=== PATIENT | female | born 1945 | race Caucasian/White ===

== ENCOUNTER → 2019-10-06 13:51 | Outpatient (CLI) | payer MEDICARE, SELFPAY ==
[2019-10-06 14:20] LABS: Basophils # 0.1 K/mm3 (0-0.2); Basophils % 0.8 % (0.1-2.0); Eosinophils # 0.4 K/mm3 (0.0-0.4); Eosinophils % 4.3 % (0.1-12.0); Hematocrit 43.5 % (37.0-47.0); Hemoglobin 13.9 g/dL (12.2-16.2); Lymphocytes # 2.4 K/mm3 (0.7-4.5); Lymphocytes % 23.3 % (10-50); Mean Corpuscular Hemoglobin 29.5 pg (27.0-31.2); Mean Corpuscular Volume 92.1 fl (81-99); Mean Platelet Volume 8.8 fl (7.4-10.4); Monocytes # 0.5 K/mm3 (0.1-1.0); Monocytes % 4.8 % (1.7-9.3); Neutrophils # 6.9 K/mm3 (1.8-7.8); Neutrophils % 66.9 % (37.0-80.0); Platelet Count 334 K/mm3 (142-424); Red Blood Count 4.72 M/mm3 (4.20-5.40); Red Cell Distribution Width 12.9 % (11.5-17.5); White Blood Count 10.3 K/mm3 (4.8-10.8)
[2019-10-06 15:17] LABS: Alanine Aminotransferase 8 U/L (12-78); Albumin Level 3.9 gm/dL (3.4-5.0); Albumin/Globulin Ratio 1.3 (1.1-1.8); Alkaline Phosphatase 77 U/L (46-116); Anion Gap 13.4 mEq/L (5-15); Aspartate Amino Transferase 11 U/L (15-37); Bilirubin,Total 0.6 mg/dL (0.2-1.0); Blood Urea Nitrogen 19 mg/dL (7-18); C-Reactive Protein 0.6 mg/dL (0.0-0.9); Calcium 9.2 mg/dL (8.5-10.1); Carbon Dioxide 30 mmol/L (21.0-32.0); Chloride 101 mmol/L (98-107); Chol/HDL Ratio 4.4 (1-3.5); Cholesterol 275 mg/dL (140-200); Creatinine,Serum 1.12 mg/dL (0.55-1.02); Estimated Glomerular Filt Rate 48 ml/min (>60); GFR (African American) 58 ML/MIN (>60); Globulin 2.9 gm/dl (1.3-3.2); Glucose 78 mg/dL (74-106); HDL Cholesterol 62 mg/dL (29-89); LDL Cholesterol 161 mg/dL (0-130); Potassium 4.4 mmoL/L (3.5-5.1); Sodium 140 mmol/L (136-145); T4 (Thyroxine) 9.7 ug/dl (4.7-13.3); Total Protein,Serum 6.8 gm/dL (6.4-8.2); Triglycerides 259 mg/dL (30-200); Uric Acid 5.9 mg/dL (2.6-7.2); VLDL Cholesterol 52 mg/dL (0-40)
[2019-10-07 13:21] LABS: RA Latex Turbid. <10.0 IU/mL (0.0-13.9)
[2019-10-07 14:10] LABS: Anti-Centromere B Antibodies <0.2 AI (0.0-0.9); Anti-Jo-1 <0.2 AI (0.0-0.9); Anti-Smith Antibody <0.2 AI (0.0-0.9); Antichromatin Antibodies <0.2 AI (0.0-0.9); Antiscleroderma-70 Antibodies <0.2 AI (0.0-0.9); RNP Antibodies <0.2 AI (0.0-0.9); Sjogren's Anti-SS-A <0.2 AI (0.0-0.9); Sjogren's Anti-SS-B <0.2 AI (0.0-0.9)
[2019-10-08 06:48] LABS: Anti-DNA (DS) Ab Qn <1 IU/mL (0-9)
== END ==
PROVIDERS: Visit Provider Nurse Practitioner Family
DX: R20.0 Anesthesia of skin (principal); I10 Essential (primary) hypertension; E55.9 Vitamin D deficiency, unspecified
CPT/HCPCS: 80053; 80061; 82652; 84436; 84443; 84550; 85025; 86140; 86225; 86235; 86431

== ENCOUNTER → 2020-01-18 10:18 | Outpatient (CLI) | payer MEDICARE, SELFPAY ==
--- NOTE | 2020-01-18 10:22 | US_ITS ---
APPROVED REPORT Exam Type: Ankle to Brachial Index Compensation Coordinator: RT Barbara(R) Indications Claudication: Bilaterally Rest Pain: Bilaterally Current Smoker Risk Factors Current Smoker Pressures/Indices Right Indices Left Indices Brachial 126.00 mmHg Brachial 130.00 mmHg Low Thigh 70.00 mmHg 0.54 Low Thigh 102.00 mmHg 0.78 Calf 66.00 mmHg 0.51 Calf 95.00 mmHg 0.73 Ankle(PT) 59.00 mmHg 0.45 Ankle(PT) 84.00 mmHg 0.65 Ankle(DP) 75.00 mmHg 0.58 Ankle(DP) 116.00 mmHg 0.89 Digit 34.00 mmHg 0.26 Digit 40.00 mmHg 0.31 Findings RT SCOOBY=0.5 LT SCOOBY=0.7 RT TBI=0.3 LT TBI=0.3 Diminished pulses bilaterally with right worse than left Abnormal waveforms distally bilaterally with right worse than left Conclusion RT SCOOBY=0.5 LT SCOOBY=0.7 RT TBI=0.3 LT TBI=0.3 Diminished pulses bilaterally with right worse than left Abnormal waveforms distally bilaterally with right worse than left MODERATE ARTERIAL DISEASE BILATERALLY RIGHT WORSE THAN LEFT SUSPECT STENOSIS OF ILIAC OR PROXIMAL FEMORAL ARTERY ON BOTH SIDES WHICH MAY BE CONFIRMED WITH CTA Electronically signed by : Krishna Stoner MD 01/19/2020 17:55:57
== END ==
PROVIDERS: PCP Nurse Practitioner Family; Visit Provider Nurse Practitioner Family
DX: R09.89 Other specified symptoms and signs involving the circulatory and respiratory systems (principal)
CPT/HCPCS: 93923

== ENCOUNTER → 2020-03-27 15:51 | Outpatient (CLI) | payer MEDICARE, SELFPAY ==
--- NOTE | 2020-03-27 15:56 | XR_ITS ---
PROCEDURE: XR FOOT WT BEARING RT 3V CLINICAL INDICATION: pain Posttraumatic pain COMPARISON: No exams were available for comparison FINDINGS: No fracture or dislocation. No lytic or blastic change. There is normal mineralization. Mild hallux valgus with osteoarthritis and bunion formation at the 1st MTP joint. Borderline pes planus. Mild osteoarthritic change talonavicular joint. Other findings:None. IMPRESSION: Mild hallux valgus with osteoarthritis and bunion formation at the 1st MTP joint. Borderline pes planus. Mild osteoarthritic change talonavicular joint. Dictated by: Krishna Stoner MD 03/27/2020 17:29 Electronically signed by Krishna Stoner MD in [place] 03/27/2020 17:29
--- NOTE | 2020-03-27 15:56 | XR_ITS ---
PROCEDURE: XR FOOT WT BEARING LT 3V CLINICAL INDICATION: PAIN COMPARISON: No exams were available for comparison FINDINGS: No fracture or dislocation. No lytic or blastic change. There is normal mineralization. Mild hallux valgus with osteoarthritis and bunion formation at the 1st metatarsophalangeal junction. On the oblique view there is some increased density along the proximal and lateral aspect of the proximal phalanx the 1st toe. This could be related to artifact from the surgery or soft tissue calcification. No other significant anomalies are evident. Bandage artifact is present medially at the 1st metatarsophalangeal junction. Other findings:None. IMPRESSION: Mild hallux valgus with osteoarthritis and bunion formation at the 1st MTP joint. Increased density noted along the proximal and lateral aspect of the proximal phalanx of the great toe which could be due to artifact or overlying soft tissue calcification Dictated by: Krishna Stoner MD 03/27/2020 17:36 Electronically signed by Krishna Stoner MD in [place] 03/27/2020 17:36
[2020-03-27 16:53] LABS: Basophils # 0.1 K/mm3 (0-0.2); Basophils % 0.6 % (0.1-2.0); Eosinophils # 0.5 K/mm3 (0.0-0.4); Eosinophils % 4.9 % (0.1-12.0); Hematocrit 40.2 % (37.0-47.0); Hemoglobin 13.6 g/dL (12.2-16.2); Lymphocytes # 2.8 K/mm3 (0.7-4.5); Lymphocytes % 27.1 % (10-50); Mean Corpuscular HGB Conc 33.8 g/dL (31.8-35.4); Mean Corpuscular Volume 88.7 fl (81-99); Mean Platelet Volume 7.7 fl (7.4-10.4); Monocytes # 0.4 K/mm3 (0.1-1.0); Monocytes % 4.1 % (1.7-9.3); Neutrophils # 6.6 K/mm3 (1.8-7.8); Neutrophils % 63.3 % (37.0-80.0); Platelet Count 317 K/mm3 (142-424); Red Blood Count 4.53 M/mm3 (4.20-5.40); Red Cell Distribution Width 13.3 % (11.5-17.5); White Blood Count 10.4 K/mm3 (4.8-10.8)
[2020-03-27 17:10] LABS: Chloride 103 mmol/L (98-107); Potassium 4.5 mmoL/L (3.5-5.1); Sodium 137 mmol/L (136-145)
[2020-03-27 17:12] LABS: Alanine Aminotransferase 12 U/L (12-78); Aspartate Amino Transferase 23 U/L (14-36); Blood Urea Nitrogen 27 mg/dl (7-17); Estimated Glomerular Filt Rate 44 ml/min (>60); GFR (African American) 53 ML/MIN (>60)
[2020-03-27 17:13] LABS: Albumin Level 4.3 g/dl (3.5-5.0); Alkaline Phosphatase 60 U/L (38-126); Anion Gap 12.5 mEq/L (5-15); Bilirubin,Total 0.4 mg/dl (0.2-1.3); Calcium 9.8 mg/dl (8.4-10.2); Carbon Dioxide 26 mmol/L (22.0-30.0); Globulin 2.2 g/dL (1.3-3.2); Glucose 83 mg/dl (74-100); Total Protein,Serum 6.5 g/dl (6.3-8.2)
[2020-03-27 17:19] LABS: C-Reactive Protein 13.2 mg/L (0-4)
[2020-03-27 17:31] LABS: Erythrocyte Sedimentation Rate 16 mm/hr (0-30)
== END ==
PROVIDERS: PCP Physician Assistant; Visit Provider Podiatrist
DX: L84 Corns and callosities (principal); L08.9 Local infection of the skin and subcutaneous tissue, unspecified
CPT/HCPCS: 36415; 73630; 80053; 85025; 85651; 86140; 87070; 87077; 87186; 87205

== ENCOUNTER → 2020-04-13 09:47 | Outpatient (CLI) | payer MEDICARE, SELFPAY ==
--- NOTE | 2020-04-13 09:59 | MR_ITS ---
PROCEDURE: MR FOOT RT WO/W CON CLINICAL INDICATION: cellulitis, infection of toe Right 3rd toe infection with pain, cellulitis right 3rd toe, chronic draining wound with severe peripheral artery disease COMPARISON: XR FOOT WT BEARING RT 3V from 03/27/2020 TECHNIQUE: Routine multiplanar multi echo sequences are performed without and with gadolinium enhancement. FINDINGS: There is slight increased STIR signal involving the tuft of the distal phalanx of the 3rd toe. This is evident on both axial sagittal and coronal images. However, there does not appear to be any significant contrast enhancement at this region. No abscess or fistulous track evident. There is thickening the overlying toenail at this region. There is mild hallux valgus with osteoarthritis of the 1st MTP joint and some minimal subarticular cystic change at the distal aspect of the 1st metatarsal with bunion formation. Small ankle joint effusion is noted. No abscesses or other significant anomalies. IMPRESSION: 1. Mild bone marrow edema of the tuft of the distal phalanx of the 3rd toe without significant enhancement. The edema could be reactive in nature from up from overlying soft tissue infection. Cannot exclude the possibility of osteomyelitis however, the absence of contrast enhancement argues against that finding. 2. Mild hallux valgus with osteoarthritis and bunion formation at the 1st MTP joint Dictated by: Krishna Stoner MD 04/19/2020 09:03 Electronically signed by Krishna Stoner MD in [place] 04/19/2020 09:03
[2020-04-13 10:03] LABS: Basophils # 0.1 K/mm3 (0-0.2); Basophils % 0.8 % (0.1-2.0); Eosinophils # 0.6 K/mm3 (0.0-0.4); Eosinophils % 5.1 % (0.1-12.0); Hematocrit 44.2 % (37.0-47.0); Hemoglobin 13.7 g/dL (12.2-16.2); Lymphocytes # 2.3 K/mm3 (0.7-4.5); Lymphocytes % 19.9 % (10-50); Mean Corpuscular Volume 93.6 fl (81-99); Mean Platelet Volume 7.6 fl (7.4-10.4); Monocytes # 0.5 K/mm3 (0.1-1.0); Monocytes % 4.8 % (1.7-9.3); Neutrophils # 7.9 K/mm3 (1.8-7.8); Neutrophils % 69.3 % (37.0-80.0); Platelet Count 389 K/mm3 (142-424); Red Blood Count 4.72 M/mm3 (4.20-5.40); Red Cell Distribution Width 13.6 % (11.5-17.5); White Blood Count 11.4 K/mm3 (4.8-10.8)
[2020-04-13 10:11] LABS: Alanine Aminotransferase 10 U/L (12-78); Albumin Level 4.6 g/dl (3.5-5.0); Albumin/Globulin Ratio 1.6 (1.1-1.8); Alkaline Phosphatase 69 U/L (38-126); Anion Gap 9.6 mEq/L (5-15); Aspartate Amino Transferase 24 U/L (14-36); Bilirubin,Total 0.6 mg/dl (0.2-1.3); Blood Urea Nitrogen 25 mg/dl (7-17); Calcium 9.8 mg/dl (8.4-10.2); Carbon Dioxide 29 mmol/L (22.0-30.0); Chloride 103 mmol/L (98-107); Estimated Glomerular Filt Rate 40 ml/min (>60); GFR (African American) 49 ML/MIN (>60); Globulin 2.8 g/dL (1.3-3.2); Glucose 104 mg/dl (74-100); Potassium 4.6 mmoL/L (3.5-5.1); Sodium 137 mmol/L (136-145); Total Protein,Serum 7.4 g/dl (6.3-8.2)
[2020-04-13 10:17] LABS: C-Reactive Protein 17.9 mg/L (0-4)
[2020-04-13 10:36] LABS: Erythrocyte Sedimentation Rate 24 mm/hr (0-30)
== END ==
PROVIDERS: PCP Physician Assistant; Visit Provider Podiatrist
DX: L08.9 Local infection of the skin and subcutaneous tissue, unspecified (principal); L03.031 Cellulitis of right toe
CPT/HCPCS: 36415; 73720; 80053; 85025; 85651; 86140; A9576

== ENCOUNTER 2020-04-28 08:50 | Day surgery (SDC) | payer MEDICARE, SELFPAY ==
[2020-04-28] VITALS (30 sets, daily range): BP systolic 117–156; BP diastolic 55–119; PULSE 65–86; RESP 15–20; TEMP 36.4–36.9; O2SAT 91–100; BMI 24.6
[2020-04-28 09:41] LABS: Basophils # 0.1 K/mm3 (0-0.2); Basophils % 0.4 % (0.1-2.0); Eosinophils # 0.7 K/mm3 (0.0-0.4); Eosinophils % 5.1 % (0.1-12.0); Hematocrit 41.4 % (37.0-47.0); Hemoglobin 14.1 g/dL (12.2-16.2); Lymphocytes # 2.4 K/mm3 (0.7-4.5); Lymphocytes % 16.6 % (10-50); Mean Corpuscular HGB Conc 34.1 g/dL (31.8-35.4); Mean Corpuscular Hemoglobin 30.2 pg (27.0-31.2); Mean Corpuscular Volume 88.6 fl (81-99); Mean Platelet Volume 8.7 fl (7.4-10.4); Monocytes # 0.6 K/mm3 (0.1-1.0); Monocytes % 4.4 % (1.7-9.3); Neutrophils # 10.6 K/mm3 (1.8-7.8); Neutrophils % 73.5 % (37.0-80.0); Platelet Count 300 K/mm3 (142-424); Red Blood Count 4.67 M/mm3 (4.20-5.40); Red Cell Distribution Width 13.3 % (11.5-17.5); White Blood Count 14.5 K/mm3 (4.8-10.8)
[2020-04-28 09:43] LABS: Chloride 104 mmol/L (98-107); Potassium 3.9 mmoL/L (3.5-5.1); Sodium 137 mmol/L (136-145)
[2020-04-28 09:46] LABS: Anion Gap 8.9 mEq/L (5-15); Blood Urea Nitrogen 25 mg/dl (7-17); Calcium 9.5 mg/dl (8.4-10.2); Carbon Dioxide 28 mmol/L (22.0-30.0); Creatinine Clearance Estimated 45 mL/min (50-200); Estimated Glomerular Filt Rate 44 ml/min (>60); GFR (African American) 53 ML/MIN (>60); Glucose 92 mg/dl (74-100)
--- NOTE | 2020-04-28 11:00 | IR_ITS ---
APPROVED REPORT Patient Location: Outpatient Head Librarian: JAQUELINE Baeza RT (R) PROCEDURES Catheter placement in the abdominal aorta Abdominal aortography Repositioning of the catheter in the abdominal aorta Bilateral iliofemoral runoff Bare-metal stent deployment to the right common iliac artery extending into the right external iliac artery Right retrograde femoral angiography INDICATION Peripheral artery disease, Kohler class III claudication, Abnormal SCOOBY Informed consent was obtained prior to the procedure. COMPLICATIONS NONE Estimated Blood Loss: LESS THAN 10 MLS TECHNIQUE 1% lidocaine used to anesthetize the right groin the right femoral artery was accessed via the Salinger technique and a 5 Qatari sheath was placed in the right femoral artery. A pigtail catheter was advanced in the abdominal aorta and abdominal aortography was performed. Catheter was repositioned and bilateral iliofemoral angiography with runoff to the bilateral feet were performed. Following this therapeutic heparin was administered and the 5 Qatari sheath was exchanged for a 6 Qatari sheath. A long wire was placed in the abdominal aorta where an 8 mm x 100 mm self-expanding stent was deployed. An 8 mm x 40 mm balloon was then deployed at 7 quintin in the proximal portion of the stent 4 quintin in the midportion and 2 quintin in the distal portion of the stent. Post retrograde femoral angiography demonstrated wide patency of the stent with excellent antegrade flow and improved blood pressure ANGIOGRAPHIC RESULTS Right renal artery singular normal. The left renal artery is singular and has an ostial 40% stenosis There is diffuse extensive calcified 30% atheromatous plaque throughout the infrarenal abdominal aorta The right common iliac artery is has an eccentric ruptured complex plaque creating a 50% stenosis. The right internal iliac artery is patent but moderately atheromatous. The external iliac artery has a proximal 50% an eccentric 70% and a concentric 80% stenosis. The right common femoral artery has 40 and 50% stenoses The right profunda femoris artery is patent. The right superficial femoral artery is occluded in its proximal through mid segment. The popliteal artery re-cannulates at the infrageniculate level through collaterals from the profunda femoris. There is a 90% stenosis in the proximal portion of the anterior tibialis artery followed by an 80% stenosis however there is good single-vessel flow into the right foot. Very distally the anterior tibialis artery crosses over and then provides flow through the posterior tibialis artery. The dorsalis pedis artery is not angiographically identified. The peroneal artery and posterior tibialis artery are proximally occluded. The posterior tibialis artery only reconstitutes in the foot level The left common iliac artery has a mid vessel 40% stenosis. The left internal iliac artery is patent but moderately diffusely stenosed. The left external iliac artery has focal tandem 80% stenoses. The left common femoral artery has 40% stenosis the left profunda femoris artery is widely patent. The left superficial femoral artery is patent throughout its entire course but moderate to severely diffusely diseased. In Shamar's canal there is an 80% stenosis. The popliteal artery is also atheromatous with diffuse 50% stenoses. The left anterior tibialis artery is patent with small caliber vessel until the proximal portion of the ankle. It is then occluded and then crosses over into the peroneal artery right at the ankle level and then scantly supplies the left foot IMPRESSION Moderate left renal artery stenosis Moderate stenosis in the right common iliac
[2020-04-28 12:47] LABS: CATHL Activated Clotting Time 324 SEC (74-125)
--- NOTE | 2020-04-28 14:30 | HMH.PHACLD ---
Jackie Morris has received discharge medication counseling on the following medications: PATIENT WITH PERIPHERAL STENTS. PATIENT CURRENT TAKING LISINOPRIL HCTZ 10/12.5 MG DAILY AND ASPIRIN 81 MG DAILY. MD STARTING ATORVASTATIN 40 MG HS AND PLAVIX 75 MG DAILY.
--- NOTE | 2020-04-28 19:10 | PC.NURSE ---
report given to estiven
--- NOTE | 2020-04-28 19:48 | PC.NURSE ---
CHARTED ON THE WRONG PATIENT
--- NOTE | 2020-04-28 19:49 | PC.NURSE ---
CHARTED ON WRONG PATIENT
[2020-09-05 09:26] LABS: CATHL Activated Clotting Time 148 SEC (74-125)
== END 2020-04-28 19:00 | disposition home or self-care (01) ==
LOC: CATHLAB 08:51 → 2ND 14:01
PROVIDERS: PCP Physician Assistant; Visit Provider Internal Medicine
DX: I70.223 Atherosclerosis of native arteries of extremities with rest pain, bilateral legs (principal); I10 Essential (primary) hypertension; M79.604 Pain in right leg; M79.605 Pain in left leg; R42 Dizziness and giddiness; R94.31 Abnormal electrocardiogram [ECG] [EKG]; Z72.0 Tobacco use; Z79.82 Long term (current) use of aspirin; Z79.899 Other long term (current) drug therapy; I77.1 Stricture of artery
CPT/HCPCS: 37221; 80048; 85025; 85347; 99152; 99153; C1725; C1769; C1876; C1894; J1644; J2720; Q9966

== ENCOUNTER 2020-05-17 07:54 | Day surgery (SDC) | payer MEDICARE, SELFPAY ==
[2020-05-17] VITALS (50 sets, daily range): BP systolic 98–150; BP diastolic 44–82; PULSE 52–90; RESP 16–18; TEMP 36.2–36.8; O2SAT 93–100; BMI 24.3
--- NOTE | 2020-05-17 07:56 | CA_ITS ---
APPROVED REPORT Field Ironworker: Alissa Flores RVT Laterality: Bilateral Study Quality: Good Indications: left carotid bruit, Dizziness and Vertigo Risk Factors Hypertension: PAD Smoking Doppler Spectral Velocity Analysis ECA (R) 76.70/9.50 cm/s ECA (L) 77.70/9.40 cm/s dICA (R) 76.20/20.50 cm/s dICA (L) 87.10/34.50 cm/s Jada (R) 86.00/25.30 cm/s Jada (L) 101.60/32.80 cm/s pICA (R) 96.00/39.50 cm/s pICA (L) 12.80/48.70 cm/s dCCA (R) 93.70/25.50 cm/s dCCA (L) 76.60/26.70 cm/s pCCA (R) 78.20/21.80 cm/s pCCA (L) 79.60/28.60 cm/s Vert (R) 38.10/15.90 cm/s Vert (L) 58.30/28.10 cm/s ICA/CCA 1.02 ICA/CCA 1.62 Findings Study suggests less than 20% stenosis of the right internal cartoid artery. Study suggests 20-49% stenosis (lower end of scale) of the left internal cartoid artery. Antegrade flow seen bilateral vertebral arteries. Conclusion Study suggests less than 20% stenosis of the right internal cartoid artery. Study suggests 20-49% stenosis (lower end of scale) of the left internal cartoid artery. Antegrade flow seen bilateral vertebral arteries. Electronically signed by : Krishna Stoner MD 05/18/2020 14:53:31
--- NOTE | 2020-05-17 07:56 | CA_ITS ---
APPROVED REPORT EXAM: Comprehensive 2D, Doppler, and color-flow Echocardiogram Size Worker: Alissa Flores RVT Ht: 5 ft 5 in Wt: 146lbs BSA: 1.73 BP: 122/70 mmHg Indications: SOA,PAD,HTN,SMOKER 2D Dimensions LVOT 1.80 cm (M/F) 1.5-2.5 M-Mode Dimensions RVDd 2.58 cm (0.9-2.6) LVDd 4.66 cm (3.5-5.7) LVDs 3.32 cm (3.5-5.7) IVSd 0.64 cm (0.6-1.1) PWd 0.91 cm (0.6-1.1) EF (Teich) 55.30% FS 28.80% EDV (Teich) 100.30 mL ESV (Teich) 44.80 mL LV Diastology E/A Ratio 0.71 Mitral Valve MV A Velocity 76.00 (40-130 cm/s) Left Ventricle Left atrium is mildly enlarged, left ventricle is normal size, mild concentric left ventricular hypertrophy, visually estimated ejection fraction 60 to 65% with no regional wall motion abnormality. Grade 1 diastolic dysfunction seen without tissue Doppler evidence of raise left atrial pressure. Right Ventricle Right atrium and right ventricular normal size and contractility. Aortic Valve Aortic valve is minimally thickened and fibrosed, there is no aortic stenosis aortic insufficiency. Mitral Valve Mitral valve is minimally thickened, there is no mitral stenosis, there is mild mitral regurgitation. Tricuspid Valve Tricuspid valve grossly normal, there is mild tricuspid regurgitation, tricuspid regurgitation jet velocity is inadequate for calculation of the right ventricular systolic pressure. Pulmonic Valve Pulmonic valve is poorly visualized. Great Vessels Aortic root is normal size. Pericardium No significant pericardial effusion noted. Conclusion 1. Mildly enlarged left atrium, normal left ventricular size, mild concentric left ventricular hypertrophy, visually estimated ejection fraction of 60 to 65% with no regional wall motion abnormality, grade 1 diastolic dysfunction seen without tissue Doppler evidence of raise left atrial pressure. 2. Mild mitral and tricuspid regurgitation. 3. No significant pericardial effusion noted. Electronically signed by : Dominick Mann, 05/18/2020 11:12:51
[2020-05-17 09:06] LABS: Basophils # 0.1 K/mm3 (0-0.2); Basophils % 0.8 % (0.1-2.0); Eosinophils # 0.9 K/mm3 (0.0-0.4); Eosinophils % 6.4 % (0.1-12.0); Hematocrit 39.4 % (37.0-47.0); Hemoglobin 13.3 g/dL (12.2-16.2); Lymphocytes # 2.1 K/mm3 (0.7-4.5); Mean Corpuscular HGB Conc 33.7 g/dL (31.8-35.4); Mean Corpuscular Hemoglobin 30.4 pg (27.0-31.2); Mean Corpuscular Volume 90.2 fl (81-99); Mean Platelet Volume 7.4 fl (7.4-10.4); Monocytes # 0.6 K/mm3 (0.1-1.0); Monocytes % 4.4 % (1.7-9.3); Neutrophils # 10.3 K/mm3 (1.8-7.8); Neutrophils % 73.3 % (37.0-80.0); Platelet Count 368 K/mm3 (142-424); Red Blood Count 4.36 M/mm3 (4.20-5.40); Red Cell Distribution Width 13.5 % (11.5-17.5)
[2020-05-17 09:10] LABS: Chloride 106 mmol/L (98-107); Potassium 3.9 mmoL/L (3.5-5.1); Sodium 139 mmol/L (136-145)
[2020-05-17 09:13] LABS: Anion Gap 6.9 mEq/L (5-15); Blood Urea Nitrogen 27 mg/dl (7-17); Calcium 9.4 mg/dl (8.4-10.2); Carbon Dioxide 30 mmol/L (22.0-30.0); Creatinine Clearance Estimated 38 mL/min (50-200); Estimated Glomerular Filt Rate 37 ml/min (>60); GFR (African American) 45 ML/MIN (>60); Glucose 101 mg/dl (74-100)
--- NOTE | 2020-05-17 10:00 | IR_ITS ---
APPROVED REPORT Patient Location: Outpatient PROCEDURES Left femoral arterial access Left retrograde femoral angiogram Bare-metal stent deployment to the left external iliac artery INDICATION Left external iliac artery peripheral artery disease, Vascular claudication Informed consent was obtained prior to the procedure. COMPLICATIONS none Estimated Blood Loss: less than 10 mls TECHNIQUE 1% lidocaine used to anesthetize the left femoral groin. The left femoral artery was accessed via the Seldinger technique. A 6 English sheath was placed in the left femoral artery and retrograde angiography was performed confirming the severe stenosis in the external iliac artery. Therapeutic heparin was administered. A 7 mm x 27 mm bare-metal stent was deployed at 14 quintin reducing the severe stenosis to 0%. At the end of the procedure the patient was transferred to the postop holding in stable condition for postoperative care and sheath removal IMPRESSION Successful stenting of the distal left external iliac artery severe tandem lesions reduced to less than 10% with one bare-metal balloon expandable stent PLAN 1. Continue current therapy Electronically signed by : Randy Latham, 05/17/2020 13:00:23
[2020-05-17 12:58] LABS: CATHL Activated Clotting Time 268 SEC (74-125)
[2020-05-17 13:21] LABS: CATHL Activated Clotting Time 150 SEC (74-125)
[2020-05-17 13:24] LABS: CATHL Activated Clotting Time 205 SEC (74-125)
--- NOTE | 2020-05-17 18:58 | PC.NURSE ---
PATIENT A&O X4, LUNGS CLEAR, PULSES EQUAL, LEFT GROIN DRESSING, CLEAN, DRY AND INTACT. PATIENT REMAINED SUPINE UNTIL 1814. THIS RN GRADUALLY RAISED THE HEAD OF THE BED. PATIENT IS NOW AT A 45 DEGREE ANGLE. PATIENT TOLERATED WELL. NO OTHER CONCERNS AT THIS TIME.
--- NOTE | 2020-05-17 19:08 | PC.NURSE ---
report given to perry
[2020-05-18] VITALS: BP 103/52; PULSE 73; RESP 16; TEMP 36.8; O2SAT 95
--- NOTE | 2020-05-18 02:55 | PC.NURSE ---
A&OX4. PT TOLERATING RA WELL THIS SHIFT. CATH SITE PRESENT TO L FEMORAL AREA, CDI. PT DOING WELL AMBULATING IN ROOM, WITH STANDBY ASSIST. PT HAS BEEN IN BED RESTING WITH EYES CLOSED MAJORITY OF SHIFT. NO C/O THUS FAR. PT STATES SHE IS READY TO GO HOME. VSS WILL CONTINUE TO MONITOR.
[2020-05-18 03:49] VITALS: BP 103/55; PULSE 75; RESP 18; TEMP 36.8; O2SAT 96
[2020-05-18 05:05] VITALS: BMI 25.0
[2020-05-18 08:00] VITALS: BP 129/67; PULSE 77; RESP 18; TEMP 36.6; O2SAT 99
--- NOTE | 2020-05-18 08:22 | PC.NURSE ---
SAIMA JOYCE WITH CARDIOLOGY AT BEDSIDE ORDERS TO DISCHARGE PATIENT. PHARMACY CALLED FOR MEDICATION EDUCATION. PATIENTS DAUGHTER CALLED PER PATIENT FOR TRANSPORT.
--- NOTE | 2020-05-18 08:44 | HMH.PHACLD ---
Jackie Morris has received discharge medication counseling on the following medications: NO NEW MEDICATIONS FOR THIS PATIENT. ALREADY TAKING ASPIRIN, PLAVIX, LIPITOR, AND LISINOPRIL. BETA ROSENDO NOT NECESSARY FOR PERIPHERAL STENT. PATIENT VERBALIZED UNDERSTANDING AND HAD NO QUESTIONS AT THIS TIME. -JAMILAH STONE, PHARMD
--- NOTE | 2020-05-18 09:12 | PC.NURSE ---
NICOLETTE CHRISTIAN FROM [facility] PROVIDED DISCHARGE INSTRUCTIONS TO PATIENT AND PATIENTS DAUGHTER 05/17/2020
== END 2020-05-18 08:37 | disposition home or self-care (01) ==
LOC: RT 07:55 → CATHLAB 08:50 → 2ND 15:05
PROVIDERS: Internal Medicine; PCP Physician Assistant; Visit Provider Urology
DX: Z72.0 Tobacco use (principal); I10 Essential (primary) hypertension; I70.223 Atherosclerosis of native arteries of extremities with rest pain, bilateral legs; M79.605 Pain in left leg; R94.31 Abnormal electrocardiogram [ECG] [EKG]; M79.604 Pain in right leg; I77.1 Stricture of artery; R42 Dizziness and giddiness
CPT/HCPCS: 37221; 80048; 85025; 85347; 93306; 93880; 99152; 99153; C1769; C1876; C1894; J1644; J2720; Q9966

== ENCOUNTER → 2021-03-02 17:03 | Outpatient (CLI) | payer MEDICARE, SELFPAY ==
[2021-03-02 17:48] LABS: Basophils # 0.1 K/mm3 (0-0.2); Basophils % 0.7 % (0.1-2.0); Eosinophils # 0.6 K/mm3 (0.0-0.4); Eosinophils % 5.8 % (0.1-12.0); Hematocrit 37.1 % (37.0-47.0); Hemoglobin 12.2 g/dL (12.2-16.2); Lymphocytes # 2.3 K/mm3 (0.7-4.5); Lymphocytes % 24.4 % (10-50); Mean Corpuscular HGB Conc 32.9 g/dL (31.8-35.4); Mean Corpuscular Volume 87.9 fl (81-99); Monocytes # 0.6 K/mm3 (0.1-1.0); Neutrophils % 63.1 % (37.0-80.0); Platelet Count 296 K/mm3 (142-424); Red Blood Count 4.22 M/mm3 (4.20-5.40); Red Cell Distribution Width 13.9 % (11.5-17.5); White Blood Count 9.5 K/mm3 (4.8-10.8)
[2021-03-02 18:35] LABS: Alanine Aminotransferase 13 U/L (12-78); Albumin Level 4.3 g/dl (3.5-5.0); Alkaline Phosphatase 68 U/L (38-126); Anion Gap 12.6 mEq/L (5-15); Aspartate Amino Transferase 48 U/L (14-36); Bilirubin,Total 0.4 mg/dl (0.2-1.3); Blood Urea Nitrogen 28 mg/dl (7-17); Calcium 9.3 mg/dl (8.4-10.2); Carbon Dioxide 26 mmol/L (22.0-30.0); Chloride 106 mmol/L (98-107); Cholesterol 176 mg/dl (140-200); Estimated Glomerular Filt Rate 32 ml/min (>60); GFR (African American) 38 ML/MIN (>60); Globulin 2.1 g/dL (1.3-3.2); Glucose 101 mg/dl (74-100); Potassium 4.6 mmoL/L (3.5-5.1); Sodium 140 mmol/L (136-145); Total Protein,Serum 6.4 g/dl (6.3-8.2); Triglycerides 237 mg/dl (30-150); VLDL Cholesterol 47 mg/dL (0-40)
[2021-03-02 18:46] LABS: Direct LDL Cholesterol 76.65 mg/dL (100-129)
[2021-03-02 18:54] LABS: T4 (Thyroxine) 8.9 ug/dl (5.53-11.0)
[2021-03-02 19:06] LABS: Thyroid Stimulating Hormone 0.84 uIU/mL (0.465-4.68)
[2021-03-02 19:17] LABS: HDL Cholesterol 59 mg/dl (40-60)
== END ==
PROVIDERS: Visit Provider Nurse Practitioner Family
DX: E55.9 Vitamin D deficiency, unspecified (principal); F17.200 Nicotine dependence, unspecified, uncomplicated; I10 Essential (primary) hypertension; I65.29 Occlusion and stenosis of unspecified carotid artery; I73.9 Peripheral vascular disease, unspecified; L85.1 Acquired keratosis [keratoderma] palmaris et plantaris
CPT/HCPCS: 80053; 80061; 82306; 84436; 84443; 85025

== ENCOUNTER → 2021-03-15 13:49 | Outpatient (CLI) | payer MEDICARE, SELFPAY ==
[2021-03-15 14:51] LABS: Hemoglobin A1C 5.7 % (4.0-6.0)
== END ==
PROVIDERS: Visit Provider Nurse Practitioner Family
DX: R73.09 Other abnormal glucose (principal)
CPT/HCPCS: 83036

== ENCOUNTER → 2021-03-26 13:52 | Outpatient (CLI) | payer MEDICARE, SELFPAY ==
--- NOTE | 2021-03-26 14:13 | CA_ITS ---
APPROVED REPORT Clinical Assistant Professor: Alissa Flores RVT Laterality: Bilateral Study Quality: Good Indications: ACNDIDA Risk Factors Hyperlipidemia Smoking Doppler Spectral Velocity Analysis ECA (R) 101.60/10.70 cm/s ECA (L) 147.60/15.00 cm/s dICA (R) 81.30/33.10 cm/s dICA (L) 99.40/39.60 cm/s Jada (R) 97.30/26.70 cm/s Jada (L) 144.40/52.40 cm/s pICA (R) 140.10/26.70 cm/s pICA (L) 118.70/35.30 cm/s dCCA (R) 92.00/27.80 cm/s dCCA (L) 78.10/21.40 cm/s pCCA (R) 77.00/15.00 cm/s pCCA (L) 77.00/21.40 cm/s Vert (R) 89.80/37.40 cm/s Vert (L) 99.40/38.50 cm/s ICA/CCA Findings Study suggests 20-49% stenosis of the right internal cartoid artery (lower end of scale). Study suggests 20-49% stenosis of the left internal cartoid artery. Antegrade flow seen bilateral vertebral arteries. Conclusion Study suggests 20-49% stenosis of the right internal cartoid artery (lower end of scale). Study suggests 20-49% stenosis of the left internal cartoid artery. Antegrade flow seen bilateral vertebral arteries. Electronically signed by : Krishna Stoner MD 03/26/2021 17:05:49
== END ==
PROVIDERS: PCP Nurse Practitioner Family; Visit Provider Urology
DX: F17.200 Nicotine dependence, unspecified, uncomplicated (principal); I10 Essential (primary) hypertension; I65.23 Occlusion and stenosis of bilateral carotid arteries; I73.9 Peripheral vascular disease, unspecified
CPT/HCPCS: 93880

== ENCOUNTER 2022-05-13 10:53 | Emergency (ER) | payer MEDICARE, SELFPAY ==
[2022-05-13 11:10] VITALS: BP 155/79; PULSE 88; RESP 18; TEMP 36.9; O2SAT 96; BMI 28.1
[2022-05-13 11:22] VITALS: BP 155/79; PULSE 88; RESP 18; TEMP 36.9; O2SAT 96
--- NOTE | 2022-05-13 11:26 | HMH.EDUTC ---
[facility] [place] Clinical Impression: Exposure to COVID-19 virus Disposition: Home, Self-Care Condition on Discharge: Good Instructions: DI for COVID-19 (Suspected or Confirmed ) Additional Instructions: *Monitor Temp, Over the counter Motrin or Tylenol as directed/as needed Tylenol every 4 hours and Motrin every 6 hours (as long as your family doctor has told you that you can take it) for fever or pain. and straight to ER if unable to lower temp less than 101.0 after medication given Follow up IMMEDIATELY for new or worsening symptoms or no Noticeable improvement over the next 48-72 hours. 911 for difficulty breathing or swallowing You were tested for today for COVID19 your test result should be back in the next 24-48 hours, you may check your results on the [facility] My Health Portal Make sure to take your Vitamins Vit. C Vit D and Zinc if you can take them Referrals: Shen Randle APRN [Primary Care Provider] - As needed Time of Disposition: 11:27 Medical Decision Making - Srikanth Inquiry Pt receiving controlled substance: No Srikanth was queried for this patient: No Vital Signs: 05/13/22 11:10 05/13/22 11:22 Temperature 98.4 F 98.4 F Temperature Source Oral Pulse Rate 88 Pulse Rate [Right Brachial] 88 Respiratory Rate 18 18 Blood Pressure 155/79 H Blood Pressure [Right Arm] 155/79 H Blood Pressure Mean [Right Arm] 104 Blood Pressure Source [Right Arm] Automatic Cuff Blood Pressure Position [Right Arm] Sitting 02 Sat by Pulse Oximetry 96 Oxygen Delivery Method Room Air - Lab Data Lab results reviewed: Yes: I reviewed the patient's lab results. Orders (Tests/Meds): ORDERS Category Date Time Status Covid-19 Nasal PCR ([facility]) Routine Lab 05/13/22 11:10 Received [facility] [place] HPI - General Stated complaint: covid test Time Seen by Provider: 05/13/22 11:26 Mode of Arrival: Ambulatory Source of Information: Patient Limitations: No Limitations Description of Symptoms (Recalled from Triage Doc. by RN): COVID TEST D/T EXPOSURE, DENIES SYMPTOMS HEENT Symptoms (Recalled from RN notes): No Resp Symptoms (Recalled from RN notes): No Skin Symptoms (Recalled from RN notes): No MS Symptoms (Recalled from RN notes): No Functional Status (Recalled from RN notes): WNL - History of Present Illness Provider Complaint: Patient states that she was recently around her daughter that has since tested positive for COVID so she came in to get tested denies any symptoms at this time - Related Data Home Medications Medication Instructions Recorded Confirmed aspirin 81 mg tablet,delayed 81 mg PO DAILY 01/26/20 03/21/21 release cholecalciferol (vitamin D3) 1,250 1,250 mcg PO QWEEK 03/27/20 03/21/21 mcg (50,000 unit) capsule Citalopram Hydrobromide [Celexa] 10 mg PO DAILY 05/17/20 03/21/21 Previous Rx's Medication Instructions Recorded carbamide peroxide 6.5 % ear drops 5 drp OTIC DAILY 4 Days #15 ml 03/03/21 clopidogrel 75 mg tablet See Rx Instructions .ROUTE 12/17/21 .COMPLEX #90 tab atorvastatin 40 mg tablet See Rx Instructions .ROUTE 02/11/22 .COMPLEX #90 tab pantoprazole 40 mg tablet,delayed 40 mg PO DAILY #30 tab 02/18/22 release Allergies Allergy/AdvReac Type Severity Reaction Status Date / Time No Known Allergies Allergy Verified 03/21/21 08:37 - Worker's Comp Is this a Worker's Comp case?: No [facility] History - Hepatitis A Screen Attestation statement:: This patient has been screened for Hepatitis A risk factors. I have reviewed the patient's past medical history: Yes Medical History: Reports:: Gastroesophageal Reflux Disease(GERD), Hypertension, Peripheral Artery Disease, Ulcer Denies:: Seizures Other Medical History: Reports: Other Other Surgeries: Yes: Colonoscopy, Tubal Ligation, Other Amputation: No Fractures: No Comment: stent in leg - Social History Smoking Status: Current every day smoker Tobacco Type: cigarettes # Packs/Day (cigarettes): 1 #Yrs
== END 2022-05-13 11:33 | disposition home or self-care (01) ==
PROVIDERS: Emergency Provider Nurse Practitioner; PCP Nurse Practitioner Family
DX: U07.1 COVID-19 (principal); R42 Dizziness and giddiness; R94.31 Abnormal electrocardiogram [ECG] [EKG]; I10 Essential (primary) hypertension; I65.29 Occlusion and stenosis of unspecified carotid artery; I73.9 Peripheral vascular disease, unspecified; K21.9 Gastro-esophageal reflux disease without esophagitis; M79.605 Pain in left leg; M79.604 Pain in right leg; Z79.02 Long term (current) use of antithrombotics/antiplatelets; L98.499 Non-pressure chronic ulcer of skin of other sites with unspecified severity; Z79.82 Long term (current) use of aspirin; Z79.899 Other long term (current) drug therapy; Z80.9 Family history of malignant neoplasm, unspecified
CPT/HCPCS: 99213; C9803; G0463; U0003; U0005

== ENCOUNTER 2024-02-19 11:35 | Outpatient (CLI) | payer MEDICARE, SELFPAY ==
[2024-02-19 11:39] LABS: Basophils # 0.1 K/mm3 (0-0.2); Basophils % 0.9 % (0.1-2.0); Eosinophils # 0.5 K/mm3 (0.0-0.4); Eosinophils % 4.6 % (0.1-12.0); Hematocrit 46.8 % (37.0-47.0); Hemoglobin 14.8 g/dL (12.2-16.2); Lymphocytes # 1.8 K/mm3 (0.7-4.5); Lymphocytes % 15.8 % (10-50); Mean Corpuscular HGB Conc 31.7 g/dL (31.8-35.4); Mean Corpuscular Hemoglobin 29.6 pg (27.0-31.2); Mean Corpuscular Volume 93.4 fl (81-99); Mean Platelet Volume 8.3 fl (7.4-10.4); Monocytes # 0.6 K/mm3 (0.1-1.0); Monocytes % 4.9 % (1.7-9.3); Neutrophils # 8.6 K/mm3 (1.8-7.8); Neutrophils % 73.9 % (37.0-80.0); Platelet Count 270 K/mm3 (142-424); Red Blood Count 5.01 M/mm3 (4.20-5.40); Red Cell Distribution Width 14.3 % (11.5-17.5); White Blood Count 11.6 K/mm3 (4.8-10.8)
[2024-02-19 11:59] LABS: Alanine Aminotransferase 9 U/L (12-78); Albumin Level 4.2 g/dl (3.5-5.0); Albumin/Globulin Ratio 1.9 (1.1-1.8); Alkaline Phosphatase 97 U/L (38-126); Anion Gap 12.3 mEq/L (5-15); Aspartate Amino Transferase 21 U/L (14-36); Bilirubin,Total 0.9 mg/dl (0.2-1.3); Blood Urea Nitrogen 14 mg/dl (7-17); Calcium 9.3 mg/dl (8.4-10.2); Carbon Dioxide 25 mmol/L (22.0-30.0); Chloride 108 mmol/L (98-107); Chol/HDL Ratio 4.1 (1-3.5); Cholesterol 179 mg/dl (140-200); Estimated Glomerular Filt Rate 44 ml/min (>60); GFR (African American) 53 ML/MIN (>60); Globulin 2.2 g/dL (1.3-3.2); Glucose 97 mg/dl (74-100); HDL Cholesterol 44 mg/dl (40-60); Potassium 4.3 mmoL/L (3.5-5.1); Sodium 141 mmol/L (136-145); Total Protein,Serum 6.4 g/dl (6.3-8.2); Triglycerides 266 mg/dl (30-150); VLDL Cholesterol 53 mg/dL (0-40)
[2024-02-19 12:10] LABS: Direct LDL Cholesterol 83.01 mg/dL (100-129)
[2024-02-19 12:14] LABS: 25-OH Vitamin D, Total 22.3 ng/mL (30-100)
[2024-02-19 12:29] LABS: Thyroid Stimulating Hormone 1.02 uIU/mL (0.465-4.68)
[2024-02-19 12:47] LABS: Vitamin B12 196 pg/mL (239-931)
== END 2024-02-19 23:59 ==
LOC: LAB.DROPOF 11:36
PROVIDERS: PCP Family Medicine; Visit Provider Family Medicine
DX: I10 Essential (primary) hypertension (principal); R53.83 Other fatigue; E55.9 Vitamin D deficiency, unspecified; R42 Dizziness and giddiness; E78.5 Hyperlipidemia, unspecified; Z79.899 Other long term (current) drug therapy; I73.9 Peripheral vascular disease, unspecified
CPT/HCPCS: 80053; 80061; 82306; 82607; 84443; 85025